=== PATIENT | male | born 1970 | race Caucasian/White ===

== ENCOUNTER 2021-05-29 06:16 | Emergency (ER) | payer OTHER ==
[2021-05-29 07:02] LABS: ALBUMIN 4.1 g/dL (3.4-5.0); BASOPHIL 0.8 % (0-2); BILIRUBIN - TOTAL 0.7 mg/dL (0.2-1.0); BUN/CREAT RATIO (CALC) 24.7 RATIO; CREATININE 0.93 mg/dL (0.67-1.17); EOSINOPHIL 2.5 % (0-5); GLOBULIN (CALCULATION) 3.2 g/dL; HCT 50.1 % (42.0-52.0); HGB 17.1 g/dl (13.2-18.0); LYMPHOCYTE 19.7 % (15-48); MAGNESIUM 1.8 mg/dL (1.8-2.4); MCHC 34.1 g/dL (32.0-36.0); MCV 90.9 fL (78.0-100.0); MONOCYTE 7.8 % (0-12); MPV 10.4 fL (6.0-9.5); NEUTROPHIL 68.8 % (41-80); NRBC 0; PLT 227 K/uL (150-400); POTASSIUM 4.7 mmol/L (3.5-5.1); RBC 5.51 M/uL (4.70-6.00); RDW 12.2 % (11.5-14.0); TOTAL PROTEIN 7.3 g/dL (6.4-8.2); WBC 9.6 K/uL (4.0-10.5)
[2021-05-29 07:07] LABS: PROTHROMBIN TIME 12.6 SECONDS (11.8-13.4); PTT 27.5 SECONDS (24.4-34.7)
[2021-05-29 07:08] LABS: PRO-BNP 81 pg/mL (<125)
[2021-05-29 07:09] LABS: D-DIMER 0.31 ug/mLFEU (0.00-0.41)
[2021-05-29] MEDS ORDERED: NORVASC5 MG PO (11:01)
== END 2021-05-29 11:26 | disposition home or self-care (01) ==
LOC: FER 06:16
PROVIDERS: Emergency Medicine Emergency Medical Services
DX: R07.89 Other chest pain (principal); I16.0 Hypertensive urgency; I10 Essential (primary) hypertension; E78.5 Hyperlipidemia, unspecified; F17.210 Nicotine dependence, cigarettes, uncomplicated; Z95.810 Presence of automatic (implantable) cardiac defibrillator; Z79.899 Other long term (current) drug therapy
CPT/HCPCS: 36415; 70450; 71045; 71275; 80053; 83735; 83880; 84484; 85025; 85379; 85610; 85730; 93005; J2270; J2405; J7120; Q9967